=== PATIENT | male | born 1970 | race Hispanic/Latino ===

== ENCOUNTER 2021-12-27 11:49 | Emergency (ER) | payer SELFPAY ==
[2021-12-27] MEDS ORDERED: MORPHINE 4 MG/1 ML INJ IV ONE (17:01)
[2021-12-27] MEDS ORDERED: SODIUM CHLORIDE 0.9% 1000 ML 1,000 ML IV ONE (17:01)
[2021-12-27] MEDS ORDERED: ONDANSETRON 4 MG/2 ML INJ IV ONE (17:01)
--- NOTE | 2021-12-27 17:06 | Emergency Department Report ---
ED Abdominal Pain HPI - General Chief Complaint: Abdominal Pain Stated Complaint: ABD PAIN Time Seen by Provider: 12/27/21 16:54 Source: EMS Mode of arrival: Stretcher Limitations: No Limitations - History of Present Illness Initial Comments: 51-year-old male presents with diffuse abdominal pain that started yesterday progressively getting worse. Symptoms started with nonbloody diarrhea last night and progressively getting worse. Patient reported to nonbloody diarrhea today. Patient noted nausea without emesis. Patient denies any fever or chills . Patient had cholecystectomy about a year ago. No other modifying or associated factors reported. MD Complaint: abdominal pain Severity scale (0 -10): 10 - Related Data Previous Rx's Medication Instructions Recorded Last Taken Type Omeprazole Magnesium [PriLOSEC Otc] 20 mg PO BID 30 Days #60 tab NS 12/27/21 Unknown Rx Ondansetron [Zofran Odt] 4 mg PO Q8HR 7 Days #21 tab.rapdis 12/27/21 Unknown Rx NS Allergies Allergy/AdvReac Type Severity Reaction Status Date / Time No Known Allergies Allergy Verified 12/27/21 11:57 ED Review of Systems ROS: Stated complaint: ABD PAIN Other details as noted in HPI Comment: All other systems reviewed and negative Gastrointestinal: abdominal pain, nausea, diarrhea ED Past Medical Hx - Medications Home Medications: Home Medications Medication Instructions Recorded Confirmed Last Taken Type Omeprazole Magnesium [PriLOSEC Otc] 20 mg PO BID 30 Days #60 tab NS 12/27/21 Unknown Rx Ondansetron [Zofran Odt] 4 mg PO Q8HR 7 Days #21 tab.rapdis 12/27/21 Unknown Rx NS ED Physical Exam - General Limitations: No Limitations General appearance: alert, in distress (Due to abdominal pain) - Head Head exam: Present: normal inspection - Eye Eye exam: Present: normal appearance - ENT ENT exam: Present: normal exam, normal orophraynx, mucous membranes moist - Neck Neck exam: Present: normal inspection, full ROM. Absent: tenderness - Respiratory Respiratory exam: Present: normal lung sounds bilaterally. Absent: respiratory distress, accessory muscle use - Cardiovascular Cardiovascular Exam: Present: regular rate, normal rhythm, normal heart sounds - GI/Abdominal GI/Abdominal exam: Present: soft, tenderness (Diffuse tenderness), guarding, normal bowel sounds. Absent: rebound - Extremities Exam Extremities exam: Present: normal inspection, normal capillary refill. Absent: tenderness, pedal edema, joint swelling - Back Exam Back exam: Absent: tenderness, CVA tenderness (R), CVA tenderness (L) - Neurological Exam Neurological exam: Present: alert, oriented X3 - Psychiatric Psychiatric exam: Present: normal affect, agitated (Due to pain) - Skin Skin exam: Present: warm, normal color ED Course Vital Signs 12/27/21 12/27/21 12/27/21 11:54 17:16 17:26 Temperature 98.7 F 98.2 F Pulse Rate 68 60 Respiratory 20 16 16 Rate Blood Pressure 144/70 160/68 [Right] O2 Sat by Pulse 100 98 Oximetry - Reevaluation(s) Reevaluation #1: 12/27/21 17:04 Here with diarrhea with diffuse abdominal pain the last 24 hours--this could be gastroenteritis but cannot rule out any other inflammatory intra-abdominal cause such as appendicitis, diverticulosis/diverticulitis, perforated abdomen, small bowel obstruction, and colitis--so another 2 rule this out we will go ahead and get basic acute abdomen work-up that include CT scan of the abdomen/pelvic, CBC, CMP, and urinalysis for any infectious or electrolyte abnormality. In the meantime we will give morphine 4 mg IV Zofran +4 mg IV x1 for symptomatic relief. Reevaluation #2: 12/27/21 18:53 CT scan of the abdomen did not show any obstruction or any inflammatory changes--so this patient's symptoms is likely as a result of gastroenteritis considering nausea and vomiting and diarrhea--we will discharge home with clear liquid diet, Protonix, and Zofran with close follow-up with her primary doctor. ED Medical Decision Making - Lab Data Result diagrams: 12/27/21 17:12 12/27/21 17:12 - Medical Decision Making See progress notes for detail - Differential Diagnosis See progress note for detail Critical care attestation.: If time is entered above; I have spent that time in minutes in the direct care of this critically ill patient, excluding procedure time. ED Disposition Clinical Impression: Gastroenteritis Abdominal pain Qualifiers: Abdominal location: unspecified location Qualified Code(s): R10.9 - Unspecified abdominal pain Gastritis Qualifiers: Gastritis type: unspecified gastritis Chronicity: unspecified Gastritis bleeding: presence of bleeding unspecified Qualified Code(s): K29.70 - Gastritis, unspecified, without bleeding Disposition: 01 HOME / SELF CARE / HOMELESS Is pt being admited?: No Does the pt Need Aspirin: No Condition: Stable Instructions: Food Choices to Help Relieve Diarrhea, Adult, Viral Gastroenteritis, Adult, Gastritis, Adult, [id number] Additional Instructions: Start with a bland diet advance as tolerated Increase your daily fluid to help your hydration Call and schedule follow-up with your primary doctor in the next 3 to 5 days for progress Please do not hesitate to call or return to emergency room if your symptoms worsen Take your new medication as prescribed to help your symptoms Prescriptions: Omeprazole Magnesium [PriLOSEC Otc] 20 mg PO BID 30 Days #60 tab NS Ondansetron [Zofran Odt] 4 mg PO Q8HR 7 Days #21 tab.jourdan KATHLEEN Time of Disposition: 18:58
--- NOTE | 2021-12-27 17:15 | XRay Report ---
CHEST 1 VIEW 12/27/2021 4:07 PM INDICATION / CLINICAL INFORMATION: Shortness of breath for one day. COMPARISON: None available. FINDINGS: SUPPORT DEVICES: None. HEART / MEDIASTINUM: The heart size and pulmonary vasculature are normal. LUNGS / PLEURA: There is a small calcified granuloma in the left mid lung laterally. No acute pulmona ry or pleural abnormality. No pneumothorax. ADDITIONAL FINDINGS: No significant additional findings. IMPRESSION: No acute findings. Signer Name: Silver Garcia MD Signed: 12/27/2021 5:11 PM Workstation Name: [id number]
[2021-12-27 17:16] VITALS: BP 160/68
[2021-12-27 17:26] LABS: Hematocrit 47.7 % (35.5-45.6); Hemoglobin 16.1 gm/dl (11.8-15.2); Mean Corpuscular HGB Conc 34 % (32-34); Mean Corpuscular Volume 95 fl (84-94); Platelet Count 288 K/mm3 (140-440); Red Blood Count 5.03 M/mm3 (3.65-5.03); Red Cell Distribution Width 15.1 % (13.2-15.2)
[2021-12-27 17:50] LABS: Alanine Aminotransferase 87 units/L (7-56); Albumin 4.3 g/dL (3.9-5); Blood Urea Nitrogen 14 mg/dL (9-20); Calcium 9.7 mg/dL (8.4-10.2); Hemolysis Index 27
[2021-12-27 17:52] LABS: BUN/Creatinine Ratio 20
--- NOTE | 2021-12-27 18:40 | Cat Scan Report ---
CT ABDOMEN AND PELVIS WITH CONTRAST HISTORY: abd pain diffuse . Nausea and vomiting with diarrhea for the past 2 days COMPARISON: None. TECHNIQUE: CT images of the abdomen and pelvis were obtained following administration of intravenous contrast. All CT scans at this location are performed using CT dose reduction for ALARA by means of automated exposure control. CONTRAST: 100 ml of intravenous contrast administered. FINDINGS: Lungs/bones: Lung bases are clear. Degenerative changes in the spine and the pelvis with no acute os seous abnormality. Abdomen/pelvis: Gallbladder is surgically absent. The liver contains a tiny probable cyst near the d ome but otherwise appears unremarkable. The spleen, pancreas, left adrenal gland, kidneys, and proxim al GI tract appear unremarkable. Homogeneous nodular density along the right adrenal gland measuring 1.7 cm on image 71 of series 2 is technically indeterminate but statistically most likely represents an adenoma. Urinary bladder and prostate are unremarkable with no pelvic free fluid. Somewhat redundant appearanc e of the rectum near the sigmoid junction with mild colonic diverticulosis but no acute inflammation. The appendix is normal. IMPRESSION: 1. No acute abnormality identified. 2. Incidental findings as above. Signer Name: Andrea Daley MD Signed: 12/27/2021 6:35 PM Workstation Name: [id number]
== END 2021-12-27 22:52 | disposition home or self-care (01) ==
LOC: ED 11:49
DX: K52.9 Noninfective gastroenteritis and colitis, unspecified (principal); K29.70 Gastritis, unspecified, without bleeding; Z79.899 Other long term (current) drug therapy
CPT/HCPCS: 36415; 71045; 74177; 80053; 83690; 83735; 83880; 84100; 84484; 85027; 96361; 96374; 96375; 99284; J2270; J2405; J7030; Q9967